=== PATIENT | male | born 1985 | race Caucasian/White ===

== ENCOUNTER 2017-04-29 17:50 | Emergency (ER) | payer OTHER ==
[~2017-04-29] VITALS: Ht 162.6 cm; Wt 54.5 kg
[2017-04-29] MEDS ORDERED: DICL50TA9 PO (18:00)
[2017-04-29] MEDS ORDERED: MISO200T4 PO (18:00)
[2017-04-29] MEDS ORDERED: CLON.5 PO (18:04)
[2017-04-29] MEDS ORDERED: BACITRACIN 0.9 GM PACKET OINTMENT TP ONE (18:15)
[2017-04-29] MEDS ORDERED: PERTUSS(ACELL),DIPH,TET VAC/PF 0.5 ML VIAL IM ONE (18:15)
[2017-04-29 18:46] VITALS: BP 113/63
== END 2017-04-29 18:47 | disposition home or self-care (01) ==
LOC: EMS 17:56
DX: S61.032A Puncture wound without foreign body of left thumb without damage to nail, initial encounter (principal); W25.XXXA Contact with sharp glass, initial encounter; Y93.89 Activity, other specified; Y92.89 Other specified places as the place of occurrence of the external cause; Y99.8 Other external cause status
CPT/HCPCS: 90471; 90715; 99283

== ENCOUNTER 2017-10-24 11:49 | Emergency (ER) | payer OTHER ==
[~2017-10-24] VITALS: Ht 162.6 cm; Wt 54.1 kg
[~2017-10-24 11:49] MED LIST: CLON.5 PO
[2017-10-24] MEDS ORDERED: PERTUSS(ACELL),DIPH,TET VAC/PF 0.5 ML VIAL IM ONE (15:30)
[2017-10-24] MEDS ORDERED: BUPIVACAINE HCL/PF 0.5% 10 ML VIAL ID ONE (17:30)
[2017-10-24] MEDS ORDERED: BUPIVACAINE HCL/PF 0.25% 10 ML VIAL INJ ONE (17:30)
[2017-10-24 18:15] VITALS: BP 123/73
== END 2017-10-24 18:45 | disposition home or self-care (01) ==
LOC: EMS 11:49
DX: S01.511A Laceration without foreign body of lip, initial encounter (principal); S33.9XXA Sprain of unspecified parts of lumbar spine and pelvis, initial encounter; S16.1XXA Strain of muscle, fascia and tendon at neck level, initial encounter; S80.02XA Contusion of left knee, initial encounter; S60.410A Abrasion of right index finger, initial encounter; G89.29 Other chronic pain; Z76.0 Encounter for issue of repeat prescription; Y04.0XXA Assault by unarmed brawl or fight, initial encounter; Y93.89 Activity, other specified; Y92.89 Other specified places as the place of occurrence of the external cause; Y99.8 Other external cause status
CPT/HCPCS: 12011; 72040; 72070; 72100; 73130 ×2; 90471; 90715; 99284; J3490